=== PATIENT | male | born 1990 | race Caucasian/White ===

== ENCOUNTER 2016-08-21 00:28 | Emergency (ER) | payer OTHER, BC ==
[~2016-08-21] VITALS: Ht 177.8 cm; Wt 90.7 kg
[2016-08-21 00:32] VITALS: BP 142/80
[2016-08-21] MEDS ORDERED: VIBRAMYCIN 100100 MG PO (01:17)
== END 2016-08-21 01:27 | disposition home or self-care (01) ==
LOC: ER 00:28
DX: L03.113 Cellulitis of right upper limb (principal); Z88.0 Allergy status to penicillin; Z88.1 Allergy status to other antibiotic agents